=== PATIENT | male | born 1950 | race Caucasian/White ===

== ENCOUNTER → 2019-12-25 12:51 | Outpatient (CLI) | payer MEDICARE, BC, SELFPAY ==
--- NOTE | 2019-12-25 12:56 | MR_ITS ---
PROCEDURE: MR LUMBAR SPINE WO CON CLINICAL INDICATION: BACK PAIN, SCIATICA ASSOCIATED DISORDER COMPARISON: No exams were available for comparison TECHNIQUE: Standard multiplanar multiecho sequences are performed without contrast. 3-D MIP and myelographic images are also rendered and reviewed FINDINGS: There is good alignment of the bony structures. Congenitally short pedicles are noted. There is uniform fat marrow signal hyperintensity and the spinal cord and the conus medullaris is unremarkable. Disc spaces are intact. At the L1-2 disc space there is a bilateral bulging disc and mild facet arthropathy producing mild bilateral neural foraminal stenosis. At the L2-3 disc space there is a broad-based disc osteophyte complex, hypertrophy of the ligamentum flavum and mild facet arthropathy producing mild spinal stenosis. AP canal measures 8 millimeters. There is mild bilateral neural foraminal stenosis. At L3-4 disc space there is a broad-based disc protrusion, facet arthropathy, and hypertrophy of the ligamentum flavum producing mild central central canal mild bilateral neural foraminal stenosis. The AP canal measures 11 millimeters. At the L4-5 disc space there is a broad-based disc protrusion with an extruded disc fragment extending superiorly within the right lateral recess to the level of the mid body of L4. There is hypertrophy of the ligamentum flavum and mild facet arthropathy. This constellation of findings produces a severe central canal, and moderate bilateral neural foraminal stenosis. AP canal measures 4.9 millimeters. At the L5-S1 disc space there is a focal paracentral disc protrusion and mild facet arthropathy producing mild central canal and mild bilateral neural foraminal stenosis, left greater than right The paralumbar structures are unremarkable. IMPRESSION: Multilevel spinal stenosis most pronounced at the level of L4-5. Dictated by: Jimmy Frost 12/25/2019 14:07 Electronically signed by Jimmy Frost in [place] 12/25/2019 14:07
== END ==
PROVIDERS: PCP Family Medicine; Visit Provider Family Medicine
DX: M53.9 Dorsopathy, unspecified; M54.9 Dorsalgia, unspecified
CPT/HCPCS: 72148; 76376

== ENCOUNTER → 2021-08-02 10:49 | Outpatient (CLI) | payer MEDICARE, BC, SELFPAY ==
[2021-08-03 06:21] LABS: Covid-19 Nasal PCR Sendout Lex NOT DETECTED
== END ==
PROVIDERS: PCP Family Medicine; Visit Provider Nurse Practitioner
DX: Z20.822 Contact with and (suspected) exposure to COVID-19 (principal)
CPT/HCPCS: C9803; U0004; U0005

== ENCOUNTER → 2022-03-01 10:15 | Outpatient (CLI) | payer MEDICARE, BC, SELFPAY ==
--- NOTE | 2022-03-01 10:32 | MR_ITS ---
FINAL REPORT CLINICAL HISTORY: LOWER BACK PAIN WITH LOWER EXTREMITIES WEAKNESS COMPARISON: 12/25/2019 FINDINGS: Multiplanar MR imaging of the lumbar spine was performed without contrast. On the sagittal T2-weighted images, disc degeneration is seen at multiple levels. Endplate changes are seen at multiple levels. The vertebral alignment is normal. There is no evidence of fracture. The conus has an unremarkable appearance. L1-2: An annular bulge and facet arthropathy are present. There is mild bilateral neural foraminal narrowing. L2-3: An annular bulge is present. Facet arthropathy and osteophytes are present. There is a right foraminal disc protrusion. There is also a left paracentral disc protrusion with moderate bilateral neural foraminal narrowing, stable. There is mild central canal stenosis with an AP diameter of the thecal sac of 8 mm. L3-4: An annular bulge is present. Facet arthropathy and osteophytes are present. There is severe right and moderate left neural foraminal narrowing. There is mild central canal stenosis with an AP diameter of the thecal sac of 8 mm. L4-5: An annular bulge is present. Facet arthropathy and osteophytes are present. There is a partially improved central disc protrusion with bilateral L5 nerve root impingement. There is mild central canal stenosis measuring 7 mm, partially improved. There is severe bilateral neural foraminal narrowing. L5-S1: An annular bulge is present. Facet arthropathy and osteophytes are present. There is a small central disc protrusion with moderate bilateral neural foraminal narrowing. Note is made of spurring of the sacroiliac joints. IMPRESSION: Multilevel disc protrusions, stable at L2-3 and partially improved at L4-5. Multilevel degenerative disc disease, spondylosis, and central canal stenosis as detailed above. Reviewed, Interpreted and Dictated by Balaji Gregg III, MD Transcribed by Angélica Hall Authenticated and [facility]
== END ==
PROVIDERS: PCP Family Medicine; Visit Provider Family Medicine
DX: M54.50 Low back pain, unspecified (principal); R29.898 Other symptoms and signs involving the musculoskeletal system; R20.0 Anesthesia of skin
CPT/HCPCS: 72148; 76376

== ENCOUNTER 2024-05-20 09:52 | Outpatient (CLI) | payer MEDICARE, BC, SELFPAY ==
--- NOTE | 2024-05-20 10:05 | XR_ITS ---
FINAL REPORT CLINICAL HISTORY: INJURY, woke up 3 weeks ago in middle of night and couldn't move knee, difficulty walking, no surgery COMPARISON: None FINDINGS: LEFT KNEE 3 views of the left knee were obtained. There is no acute fracture or dislocation. Visualized joint spaces are normally aligned. Soft tissues are unremarkable. IMPRESSION: No acute bony abnormality. Reviewed, Interpreted and Dictated by Frantz Blunt MD Transcribed by Yamileth Medina Authenticated and [facility]
== END 2024-05-20 23:59 | disposition home or self-care (01) ==
LOC: RAD 09:58
PROVIDERS: PCP Family Medicine; Visit Provider Family Medicine
DX: R26.2 Difficulty in walking, not elsewhere classified (principal); S89.92XA Unspecified injury of left lower leg, initial encounter
CPT/HCPCS: 73562

== ENCOUNTER 2025-05-18 15:29 | Outpatient (CLI) | payer MEDICARE, BC, SELFPAY ==
--- NOTE | 2025-05-18 15:35 | CT_ITS ---
FINAL REPORT TECHNIQUE: Axial CT images were performed through the head. Coronal and sagittal reformatted images were submitted. This study was performed with techniques to keep radiation doses as low as reasonably achievable (ALARA). Individualized dose reduction techniques using automated exposure control or adjustment of mA and/or kV according to the patient's size were employed. CLINICAL HISTORY: FALL/TRAUMA fall sunday down stairs bruising noted COMPARISON: None FINDINGS: The ventricles are normal in size. There is no evidence of hemorrhage. There is no mass or edema identified. There is no abnormal extra-axial fluid seen. There is mild mucoperiosteal thickening of the right maxillary sinus. There are 2 large scalp hematomas present. The right frontal scalp hematoma measures up to 1.5 cm in depth. The left parietal hematoma measures up to 1.0 cm in depth. No skull fracture is identified. IMPRESSION: No acute intracranial process. 2 large scalp hematomas are present as described, without evidence of skull fracture. Reviewed, Interpreted and Dictated by Frantz Blunt MD Transcribed by Jen Burk Authenticated and [facility]
--- NOTE | 2025-05-18 15:36 | CT_ITS ---
FINAL REPORT TECHNIQUE: Axial images were obtained of the cervical spine by computed tomography. Coronal and sagittal reconstruction process performed. This study was performed with techniques to keep radiation doses as low as reasonably achievable (ALARA). Individualized dose reduction techniques using automated exposure control or adjustment of mA and/or kV according to the patient's size were employed. CLINICAL HISTORY: FALL TRAUMA INJURY TO HEAD fall sunday down stairs COMPARISON: None FINDINGS: Cervical vertebrae show normal height. Osteopenia is present. There is disc space narrowing at the C6-7 level, along with endplate hypertrophy eccentric to the left with severe left neural foraminal narrowing. There is no malalignment. The facets are properly aligned. No acute fracture is identified. IMPRESSION: Mild to moderate degenerative changes are present, without acute osseous abnormality. Reviewed, Interpreted and Dictated by Frantz Blunt MD Transcribed by Jen Burk Authenticated and [facility]
--- OUTSIDE RECORDS SUMMARY | 2025-05-18 22:59 | XMS_ITS | Data Portability ---
Author Organization [facility] Address [address] [place] [address] Care Team Providers Care Route Rider Supervisor Name Role Phone BUCK STOUT Primary Care Provider Assessment Encounter Date Assessment Date Assessment LastModified by Organization Details LastModified Time 05/04/2022 05/04/2022 Mr. Zhou is a 71-year-old gentleman with fairly severe stenosis at L4-5. He is tolerating it at this time and may hold off on any intervention. We discussed a L4-5 laminectomy when he is ready. He will call us if he gets to that point. [email or web address] Not available 05/04/2022 10:20:37 Plan of Treatment Reminders Order Date Submit Date Provider Last Modified By Organization Details Last Modified Time Details Appointments None record ed. Lab None record ed. Referral None record ed. Procedures None record ed. Surgeries None record ed. Imaging None record ed. Medication Orders None record ed. Patient TargetsNo targets recorded. Patient Instructions Encounter Date Encounter Id Patient Instructions Last Modified By Organization Details Last Modified Time 10/16/2017 [id number] hoarseness: care instructions [email or web address] Not available 10/16/2017 17:12:09 coughing up blood: care instructions [email or web address] Not available 10/16/2017 17:12:09 1. Flexible laryngoscopy performed today. 2. We recommend he see Dr. Pradhan again and consider a bronchoscopy. 3. Depending on what Dr. Pradhan finds, we will consider a GI doctor. 4. Follow up visit in 3 months. samina Not available 10/16/2017 16:04:33 01/15/2018 [id number] coughing up blood: care instructions [email or web address] Not available 01/15/2018 17:28:59 chronic obstructive pulmonary disease (COPD): care instructions [email or web address] Not available 01/15/2018 17:28:59 learning about copd and how to prevent lung infections [email or web address] Not available 01/15/2018 17:28:59 1. Flexible laryngoscopy performed today - clinical photographs obtained. 2. Follow up visit PRN or sooner if concerns arise. mimi Not available 01/15/2018 14:01:39 Reason for Referral None Reported. Results Created Date Observation Date Name Description Value Unit Range Abnormal Flag Note LastModifiedBy Organization Detail LastModifiedTime 05/05/20 22 03/01/2022 MRI, lumba r spine , w/o contr ast No observ ation record ed. BARCODE Not Available 2021 13:23:26 05/05/20 22 12/25/2019 MRI, lumba r spine , w/o contr ast No observ ation record ed. BARCODE Not Available 2021 13:23:26 Result Notes None recorded. Problems No Known Problems Procedures Surgical History Date Name Laterality Status Provider Name and Address Organization Details Recorded Time 018 Laryngoscopy Flex completed Erica Marshallson [facility] 01/15/2018 13:58:29 018 Laryngoscopy Flex completed Shelbie Kay Jane [facility] 10/16/2017 16:01:35 hemorrhoidectomy completed Christa Vincent [facility] 05/04/2022 09:26:22 Imaging Results None recorded. Procedure Notes None recorded. Medical Equipment None Reported. Allergies Allergen ID Allergen Name Allergen Category Reaction Reaction Severity Criticality Documentation Date Start Date Code Code System Note Provider Name and Address Organization Details Recorded Time [id number] Tylenol medicatio n Not available Not available Not available 10/16/2017 3 [facility] 14:[facility]52 Medications Name Sig Start Date Stop Date Status Note LastModified by Organization Details LastModified Time atorvastati n 10 mg tablet active Not Available Not Available Not Available azithromyci n 250 mg tablet 05/04 completed Not Available Not Available Not Available prednisone 20 mg tablet 10/16 completed Not Available Not Available Not Available amlodipine 5 mg tablet active Not Available Not Available Not Available amoxicillin 875 mg tablet 10/16 completed Not Available Not Available Not Available albuterol sulfate HFA 90 mcg/actuati on aerosol inhaler active Not Available Not Available Not Available cefdinir 300 mg capsule TAKE 1 CAPSULE BY MOUTH TWICE DAILY UNTIL ALL TAKEN FOR INFECTION 05/04 completed Not Available Not Available Not Available bupropion HCl XL 150 mg 24 hr tablet, extended release 10/16 completed Not Available Not Available Not Available Pepcid Complete 05/04 completed Not Available Not Available Not Available levocetiriz ine 5 mg tablet Take 1 tablet every day by oral route. 05/04 completed Not Available Not Available Not Available Stiolto Respimat 2.5 mcg-2.5 mcg/actuati on solution for inhalation 05/04 completed Not Available Not Available Not Available Vitals Date Recorded Body weight Body mass index (BMI) Body height Body temperature Heart rate Systolic And Diastolic Provider Name and Address Organization Details Last Updated DateTime 8 29754.7 3 g 26.1 kg/m2 172.72 cm 98.1 [degF] 75 /min 131/71 mm[Hg] Mae Vila [facility] 8 14:44:12 Date Recorded Body height Body mass index (BMI) Body weight Body temperature Systolic And Diastolic Provider Name and Address Organization Details Last Updated DateTime 01/15/2018 172.72 cm 25.7 kg/m2 39117.1 1 g 97 [degF] 141/75 mm[Hg] Alyson Perry [facility] 8 13:06:37 Date Recorded Body weight Body mass index (BMI) Body height Systolic And Diastolic Provider Name and Address Organization Details Last Updated DateTime 05/04/2022 04749.11 g 25.7 kg/m2 172.72 cm 126/82 mm[Hg] Christa Vincent [facility] 05/04/2022 09:27:33 Social History Question Answer Notes LastModified by Organizat ion Details LastModified Time Tobacco Smoking Status Current Every Day Smoker Christa langford [facility] 05/04/2022 09:26:04 What Was The Date Of Your Most Recent Tobacco Screening? 01/15/2018 [id number] Information not available 08/19/2019 Has Tobacco Cessation Counseling Been Provided? No [email or web address] Information not available 10/16/2017 Sex: Unknown Functional Status Question Answer Note LastModified by Organizat ion Details LastModified Time What is your level of alcohol consumption? Occasional [email or web address] Information not available 10/16/2017 Mental Status None recorded. Family History Relationship Description Onset Age of this Age Resolved Age Notes LastModified by Organization Details LastModified Time Mother Heart disease [email or web address] Not available 14:41:09 Father Family history of stroke Not available 14:41:17 Unspecified Relation Cerebrovascu lar accident [email or web address] Not available 09:25:55 Medical History Condition Response Diabetes N Anesthesia Complications N Bleeding Disorder N Cancer N Hypertension Y High Cholesterol Y Immunizations Vaccine Type Date Status Note Provider Nam e and Address Organization Details Recorded Time COVID-19, mRNA, LNP-S, PF, 100 mcg/0.5mL dose or 50 mcg/0.25mL dose 06/01/2021 completed Christamicah MarieMelisa [facility] 05/04/2022 09:27:37 COVID-19, mRNA, LNP-S, PF, 100 mcg/0.5mL dose or 50 mcg/0.25mL dose 08/10/2020 [facility] 09:27:37 COVID-19, mRNA, LNP-S, PF, 100 mcg/0.5mL dose or 50 mcg/0.25mL dose 07/09/2020 completed Christa Melisa [facility] 05/04/2022 09:27:37 zoster live 12/03/2015 completed Christa Buchhol z [facility] 05/04/2022 09:27:37 Past Encounters Encounter ID Performer Location Encounter Start Date Encounter Closed Date Diagnosis/Indication Diagnosis SNOMED-CT Code Diagnosis ICD10 Code Diagnosis IMO Codes Diagnosis Note [id number] SHANICE FLORES MD [place] [facility] [address] [place] [address] 10/16/2017 13:49:37 10/16/2017 16:27:21 Hemoptysis 47264852 R04.2 - likely due tovaricosi ty in nasopharyn x Hoarse 54230945 R49.0 [id number] SHANICE FLORES MD [place] [facility] [address] [place] [address] 01/15/2018 12:40:14 01/15/2018 14:21:01 Hemoptysis 51870939 R04.2 history of likely due to varicosity in nasopharyn x and hypopharyn x Chronic ob structive pulmonary disease 69111387 J44.9 [id number] BIRD JENNINGS MD NEUROSUR[facility] [address] [place] [address] 05/04/2022 08:52:58 05/05/2022 13:29:10 Neurogenic claudication 188559462 M48.062 Time spent reviewing images, discussing the diagnosis and coordinati ng care: 30min Health Concerns Section Related Observation LastModified by Organization Detai ls LastModified Time None Recorded Concern Status LastModified by Organization Details LastModified Time None Recorded Advance Directives Directive None Recorded Payers Insurance Date Sequence Insurance Name Policy Number Policy Gilliam Covered Member ID Gilliam Member ID Guarantor Name 03/03/2022 1 [place] Clinton Zhou [id number] Clinton Zhou 08/25/2023 2 [place] [id number] Clinton Zhou [id number] Clinton Zhou 08/25/2023 1 [place] Clinton Zhou [id number] Clinton Zhou 03/03/2022 2 [place]ACEMENT HMO) [id number] Clinton Zhou [id number] Clinton Zhou Notes Date Note Type Note Provider Name and Address Organization Details Recorded Time 10/16/2017 text/html Clinton is a 67 year old male here today for a consultation of sinusitis. He says that he had a bad sinus infection on the right side of his face. He could feel pressure in his eyes and had a cough that was productive. He did end up coughing up blood but says that was the last two weeks of August. He continues to have some hoarseness. Clinton complains that he has the sensation that something is in the right side of his throat. He did have a chest x-ray which was normal. He says that he has a history of a pack of day smoking and was drinking 6-8 beers a night. SHANICE FLORES MD [facility] [place], [address], [facility] 10/18/2017 11:07:35 01/15/2018 text/html Clinton is a 67-year-old male here today for a follow up of hemoptysis. He says that he has not had any bleeding since September. He did not see Dr. Pradhan for a bronchoscopy. Clinton says that he had a normal CT and chest x-ray of his lungs. His says that Dr. Pradhan thinks he has COPD. He was prescribed an inhaler. SHANICE FLORES MD [facility] [place], [address], [facility] 01/16/2018 07:27:18 05/04/2022 text/html Mr. Zhou is a 71-year-old gentleman with low back pain and lower extremity numbness, most pronounced on the inside of the right thigh. This was exacerbated in January after numerous activities such as lifting rocks. He is pain-free at this time. He gets some relief with walking, and the pain is worse with bending over and lifting. He describes numbness and tingling and some balance difficulties. No loss of bowel or bladder control. He has a history of a lumbar spinal injection which gave him an approximate 3 months of release. He presents today with an MRI of the lumbar spine performed at [facility] on March 01, 2022. BIRD JENNINGS MD [facility] [place], [address], [facility] 05/04/2022 10:21:34
== END 2025-05-18 23:59 | disposition home or self-care (01) ==
LOC: RAD 15:31
PROVIDERS: PCP Family Medicine; Visit Provider Nurse Practitioner
DX: M47.812 Spondylosis without myelopathy or radiculopathy, cervical region (principal); S00.03XA Contusion of scalp, initial encounter; W10.9XXA Fall (on) (from) unspecified stairs and steps, initial encounter
CPT/HCPCS: 70450; 72125